=== PATIENT | male | born 1945 | race Caucasian/White ===

== ENCOUNTER 2018-11-02 12:48 | Outpatient (CLI) | payer OTHER ==
[~2018-11-02 12:48] MED LIST: AMLO5TAB10 PO; ATOR40TA78 PO; BUPR100T11 PO; CAPS60CR23 TP; CHOL10003 PO; DILT240T8 PO; FERR324T18 PO; FOLI0.8T33 PO; GABA100C PO; INSU100C5 SQ-INSULIN; INSU100I18 SC; LISI-420 PO; MELA1TAB22 PO; PANT20TA3 PO; SEVE800T8 PO; TAMS0.4C2 PO; VENL37.58 PO; WARF-36 PO
== END 2018-11-02 23:59 | disposition home or self-care (01) ==
LOC: CARD 12:48
PROVIDERS: ATTEND Nurse Practitioner Family
DX: F03.90 Unspecified dementia, unspecified severity, without behavioral disturbance, psychotic disturbance, mood disturbance, and anxiety (principal); I12.9 Hypertensive chronic kidney disease with stage 1 through stage 4 chronic kidney disease, or unspecified chronic kidney disease; E11.22 Type 2 diabetes mellitus with diabetic chronic kidney disease; N18.5 Chronic kidney disease, stage 5; E11.40 Type 2 diabetes mellitus with diabetic neuropathy, unspecified; E78.2 Mixed hyperlipidemia
CPT/HCPCS: 95819

== ENCOUNTER 2019-05-24 12:51 | Emergency (ER) | payer OTHER ==
[~2019-05-24] VITALS: Ht 167.6 cm; Wt 83.1 kg
--- NOTE | 2019-05-24 12:55 | NUR ---
BIB [facility]. PT SLIPPED OUT OF WC AFTER DIALYSIS TODAY. PT STATES HE'S FELT WEAK LAST FEW DAYS. C/O R LAT RIB PAIN AND CAN'T SLEEP. 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 INCISION SITE WELL APPROXIMATED, NOT REDNESS OR SWELLING PRESENT. PT MISSED DIALYSIS YESTERDAY AND MADE UP SESSION TODAY. CONNECTED TO ALL MONITORING. CALL LIGHT IN REACH.
[2019-05-24] MEDS ORDERED: SODIUM CHLORIDE FLUSH 10ML SYR IVF ONE (13:00)
--- NOTE | 2019-05-24 13:09 | NUR ---
PT REFUSED LABS. PT TAKEN TO CT. EKG DONE
--- NOTE | 2019-05-24 13:54 | NUR ---
PT BACK FROM CT. PT STATES HE CAN'T URINATE SINCE HE JUST HAD DIALYSIS. NOTIFIED. PT HAD PREVIOUSLY REFUSED LAB DRAW AND STATES HE STILL DOES NOT WANT THEM DRAWN. AWARE. Addendum: 05/24/19 at 1421 by [facility] PT ALSO REFUSED IV START.
[2019-05-24 13:55] VITALS: BP 144/70
--- NOTE | 2019-05-24 14:10 | NUR ---
SURGICAL SITE TO RIGHT FOOT CLEANSED AND REDRESSED.
--- NOTE | 2019-05-24 14:15 | NUR ---
REPORT GIVEN TO RECEIVING RN AT [facility].
--- NOTE | 2019-05-24 14:18 | NUR ---
TRANSPORT BEING ARRANGED AT THIS TIME. [facility] CALLED AND INFORMED PT TO ARRIVE. CECILIA TRUONG AWARE AND DR. WILLIAM. PT TO BE TRANSPORTED VIA AMBULANCE.
--- NOTE | 2019-05-24 15:16 | NUR ---
[facility] HERE FOR PT TRANSFER TO [facility]. REPORT GIVEN TO [facility].
== END 2019-05-24 15:50 | disposition home or self-care (01) ==
LOC: ED 13:10
DX: I48.91 Unspecified atrial fibrillation (principal); R53.1 Weakness; R51 Headache; I10 Essential (primary) hypertension; E11.9 Type 2 diabetes mellitus without complications; E78.5 Hyperlipidemia, unspecified; Z86.73 Personal history of transient ischemic attack (TIA), and cerebral infarction without residual deficits; W07.XXXA Fall from chair, initial encounter; Y93.89 Activity, other specified; Y92.89 Other specified places as the place of occurrence of the external cause; Y99.8 Other external cause status
CPT/HCPCS: 70450; 93005; 99284